=== PATIENT | female | born 1970 | race Caucasian/White ===

== ENCOUNTER 2022-05-26 19:22 | Emergency (ER) | payer MEDICAID, SELFPAY ==
[2022-05-26 19:53] VITALS: BP 172/82; PULSE 79; RESP 16; TEMP 36.6; O2SAT 100; BMI 25.8
--- NOTE | 2022-05-26 19:57 | CRLHL7_ITS ---
For Patients: As a result of the Cures Act, medical imaging exams and procedure reports are released immediately into your electronic medical record. You may view this report before your referring provider. If you have questions, please contact your health care provider. INDICATION: Foreign body. TECHNIQUE: Three views of the right 4th finger. FINDINGS: No radiopaque foreign body identified in the 4th finger. No subcutaneous gas. No fracture. Normal exam. Dictated by Ahmet Garcia MD @ 05/26/2022 8:44:15 PM (Electronically Signed)
--- NOTE | 2022-05-26 19:58 | ED_ITS ---
HPI - Extremity Injury (Upper) General Time Seen by Provider: 19:58 Date Seen: 05/26/22 Chief Complaint: Extremity Pain/Injury, Upper Stated Complaint: Sliver Rt Ring Finger Time Seen by Provider: 05/26/22 19:57 Source: patient and RN notes reviewed Mode of arrival: ambulatory Limitations: no limitations History of Present Illness HPI narrative: Patient was cleaning would drawer when she believe she got a splinter that went in 1 side of the finger and out. She can see wounds along the dorsal PIP joint and then another open wound along the lateral phalanx. She believes are still splinter in there. She is absolutely sure her tetanus is up-to-date. Her finger is painful and hurts to move it. She has been having it on ice, feels numb from that standpoint but noted no numbness immediately after the injury. She states with a very strong flash light at home she could see the splinter still in her finger. MD complaint: injury to: right and finger Related Data Home Medications Medication Instructions Recorded Confirmed No Known Home Medications 05/26/22 05/26/22 Allergies Allergy/AdvReac Type Severity Reaction Status Date / Time aspirin Allergy throat and Verified 05/26/22 20:01 tongue swelling Review of Systems Narrative: As per HPI PFSH PFSH Social History Smoking Status: Current every day smoker How often do you have a drink containing alcohol: monthly or less AUDIT-C Alcohol total score: 1 Non-prescribed substance use: denies use Exam Const: Vital Signs, click to edit/add: Vital Signs - 24 hr 05/26/22 19:53 Temperature 97.8 F Pulse Rate [Right Pulse Oximeter] 79 Respiratory Rate 16 Blood Pressure [Le ft Forearm] 172/82 H Pulse Oximetry 100 Oxygen Delivery Me thod Room Air Patient is resting her finger on an ice pack, the digit is obviously cold from that. Seems to have normal distal sensation. Small possible entrance wound or exit wound along the proximal dorsal PIP joint, no active bleeding at this time. Laterally along the finger there is another small linear skin abnormality, no active bleeding. I cannot feel any abnormality or see any protruding wood splinter. Any touching of this area is extremely painful for her, she does not want me to manipulate or touch the finger. Reviewed that we will see if I can see anything on x-ray. If I cannot see anything on the x-ray, may try to number up with a digital block, see if I can explore at all. If this is not readily evident, may need Orthopedics to actually investigate in the OR which she understands would not be happening tonight. Documenting provider has reviewed patient's vital signs: yes Common normals: no apparent distress, average body habitus, oriented x3, no limitations, healthy appearing and alert Neuro: Common normals: oriented x3 Sensorium/orientation: alert Course Reevaluation(s) Reevaluation #1: Attempted procedure of removal of foreign body. Lidocaine was given as below. Patient was let set for while to get complete anesthesia of the involved finger. After the finger was cleaned, was able to see that the entrance wound actually appeared to be on the palmar surface of the finger along the PIP joint. It was just dried blood on the dorsal surface. The lateral linear lesion that looks like maybe small cut was actually just blood. There is a small pinpoint area where it looked like there might have been a little exit. I was able to blot what felt like to be a retained wood piece or foreign body in her finger. I did attempt a small scalp full incision laterally but this did not give me any better access. There was no significant bleeding at the end, bleeding was controlled with just a bit of pressure. I did try to probe the small entrance wound along the palm of this finger but did not want to open it further. At this time, I feel patient is best suited having Orthopedics remove this foreign body in a controlled environment like the OR. I have subsequently paged them and we are currently waiting a call back. Bandage and dressing was applied, will have staff clean this up and put a bulky dressing on for the evening. Time: 21:14 Reevaluation #2: On review systems, patient has no concerning cardiopulmonary change. It sounds as if she has maybe had some local anesthetic for some type of sister lesion that was drained in the ER but no general anesthesia no surgeries ever in in OR. She states she has no chronic health issues. She is not aware of any family history of any anesthesia issues. She does use chronic tobacco in the form of cigarettes, no alcohol. Sclera clear extraocular muscles intact normal symmetrical facial function. Lungs are clear good air entry, CV regular rate and rhythm no murmur normal S1 and S2. Time: 21:38 Consultations Consultation #1: Dunia the orthopedic PA on-call and I discussed the case. She is going to touch base with the orthopedist and get back to me as far as their plans. They will plan on doing this on Saturday, patient will be contacted about the time of this on Saturday tomorrow. distribution engineering technologist will clean the finger, bandage and put a long finger aluminum form splint on. Plan will be to do this under local. I certainly feel based on my a evaluation and history that she certainly would be clear for local anesthesia and some IV sedation if needed. Time: 21:22 Vital Signs Vital signs: Initial Vital Signs Temperature 97.8 F 05/26/22 19:53 Temperature Source Oral 05/26/22 19:53 Pulse Rate 79 05/26/22 19:53 Respiratory Rate 16 05/26/22 19:53 Blood Pressure 172/82 H 05/26/22 19:53 Blood Pressure Mean 112 05/26/22 19:53 Blood Pressure Position Sitting 05/26/22 19:53 Pulse Oximetry 100 05/26/22 19:53 Oxygen Delivery Method 05/26/22 19:53 Vital Signs Temperature 97.8 F 05/26/22 19:53 Pulse Rate 79 05/26/22 19:53 Respiratory Rate 16 05/26/22 19:53 Blood Pressure 172/82 H 05/26/22 19:53 Pulse Oximetry 100 05/26/22 19:53 Oxygen Delivery Method 05/26/22 19:53 Temperature 97.8 F 05/26/22 19:53 Pulse Rate 79 05/26/22 19:53 Respiratory Rate 16 05/26/22 19:53 Blood Pressure 172/82 H 05/26/22 19:53 Pulse Oximetry 100 05/26/22 19:53 Oxygen Delivery Method 05/26/22 19:53 MDM - Extremity Injury (Upper) Imaging Data X-ray right 4th finger: Attestation: I have reviewed the pertinent imaging results. My impression: No foreign body visualized on my preliminary read. Radiologist's impression: Patient: EMIGDIO FORD Facility:?[facility] Patient ID:?[id number] Site Patient ID:?[id number]. Site :?[id number] Study:?XRay Extremity Right 4th finger-05/26/2022 8:37:30 PM Ordering Physician:?Keith Susana Final Report: INDICATION: Foreign body. TECHNIQUE: Three views of the right 4th finger. FINDINGS: No radiopaque foreign body identified in the 4th finger. No subcutaneous gas. No fracture. Normal exam. Dictated by Ahmet Garcia MD @ 05/26/2022 8:44:15 PM (Electronic Signature) Critical Care Time Critical Care Time Critical Care Time: No Discharge Plan Discharge Clinical Impression: Foreign body of finger of right hand Patient Disposition: Home, Self-Care Condition: Stable Additional Instructions: Need to leave bandage on and use splint to help you from bending this finger, this will help keeping more comfortable. Continue icing and elevating to help minimize pain and swelling. Can use Tylenol and ibuprofen if needed for pain control. The hospital should be contacting you at some point tomorrow to tell you a report time and requirements prior to the surgery. The plan is to have this foreign body removed by Orthopedics under local in the operating room on Mo [place] at some point. Prescriptions: No Action No Known Home Medications Follow Up/Referrals: Provider,Not a Local [Primary Care Provider] - Stand Alone Forms: [facility] Info Instructions Procedures Foreign Body Removal Time Out Performed: no Site: right and other (Finger) Method: Patient was given 5 mL 1% lidocaine as a digital block and left to sit Sedation/Analgesia: none
[2022-05-26] MEDS: LIDOCAINE 1% 5 ml (pf) 5 ML VIAL INJECTION (20:34)
--- NOTE | 2022-05-26 21:48 | ED.NURSE ---
Confirmed with Pt best phone number for contact. HS to work with Ortho and Surgery to schedule time for procedure. Pt aware she will be contacted with arrival time. COVID swab obtained and sent.
--- NOTE | 2022-05-26 21:49 | ED.NURSE ---
finger cleaned and prepped by ert
[2022-05-26 21:53] VITALS: PULSE 70; RESP 18; O2SAT 98
[2022-05-26 22:24] LABS: SARS PCR* Negative SARS-CoV-2 (Negative)
== END 2022-05-26 21:55 | disposition home or self-care (01) ==
PROVIDERS: Emergency Provider Family Medicine
DX: S60.454A Superficial foreign body of right ring finger, initial encounter (principal); W45.8XXA Other foreign body or object entering through skin, initial encounter
CPT/HCPCS: 10120; 73140; 87635; 99283; 99284

== ENCOUNTER 2022-05-28 06:20 | Day surgery (SDC) | payer MEDICAID, SELFPAY ==
[2022-05-28] VITALS (10 sets, daily range): BP systolic 126–140; BP diastolic 61–76; PULSE 73–93; RESP 16; TEMP 36.3–36.4; O2SAT 96–100; BMI 26.6
[2022-05-28] MEDS: BUPIVACAINE 0.5% 30 ML INJECTION (07:00)
[2022-05-28] MEDS: ETHYL CHLORIDE 1 APPLICATION 1 APPLIC TOPICAL (07:00)
--- NOTE | 2022-05-28 07:02 | SUR.PREOP ---
SAME DAY SURGERY LOCAL INJECTION SITE VERIFICATION WAS PERFORMED BY SURGEON/PA AND PATIENT PRIOR TO LOCAL ANESTHETIC BEING INJECTED TO OPERATIVE SITE.
[2022-05-28] MEDS: BACITRACIN OINTMENT BULK TUBE 1 APPLIC TOPICAL (07:57)
--- NOTE | 2022-05-28 08:05 | P.ORPRC_ITS ---
Procedure Note Date of procedure: 05/28/22 Procedure: PREOPERATIVE DIAGNOSIS: 1. Right ring finger retained foreign body, volar PIP joint region (wood slivers) POSTOPERATIVE DIAGNOSIS: 1. Right ring finger retained foreign body, volar PIP joint region (wood slivers) PROCEDURE: 1. Right ring finger open removal of multiple foreign bodies, volar PIP joint region, complicated (wood slivers x6) SURGEON: El Vicente MD. LEAD ESTHETICIAN: Rboert Yuen PA-C - Of note, an patient clerical assistant was critical for this case to aid in patient positioning, tissue retraction, limb manipulation/positioning, patient safety, & closure. ANESTHESIA: Local anesthetic for digital block (50:50 mixture of 1% lidocaine plain and 0.5% marcaine plain) EBL: IMPLANTS: None TOURNIQUET: Tournicot digital tourniquet for approximately 8 minutes COMPLICATIONS: None evident INDICATIONS: The patient is a pleasant 52-year-old female who reportedly was cleaning a dresser/drawer during a home remodeling project. As she slid her right hand along the would surface a sliver penetrated through the volar aspect ring finger PIP joint region. She saw the entry and exit location. She thought she got a majority of the wood fragment out. Unfortunately, she continued to have pain and swelling and dysfunction. She presented [facility]. no further foreign body could be identified through the current penetrating locations. She was given a splint encouraged follow up for surgical removal on today's date, 05/28/2022. Upon my evaluation, indeed she had a significantly swollen, mildly erythematous, tender right S ring finger PIP joint region. She had difficulty with active range of motion due to the pain as well. Indeed there is a small 1 mm entry wound near the PIP flexor crease ulnarly and an exit wound along the radial border of the middle phalanx. Given the suspicion for foreign body retention, surgery was indicated. DESCRIPTION OF PROCEDURE: Following a thorough discussion of risks, benefits, and alternatives consent was obtained and the operative extremity/digit was marked. The patient was brought to the operating room and placed supine on the operating table. No antibiotics were administered as this was planned to be a local case only. Proper time-out was performed identifying proper patient, site, and procedure. The operative extremity was prepped and draped in the appropriate sterile fashion using ChloraPrep. The limb was exsanguinated and the tourniquet inflated. A Jovan incision was made on the volar aspect centered at the PIP joint. Diagonally went across both the proximal phalanx and middle phalanx from ulnar in towards radial. We elevated this flap that was full-thickness down to the flexor tendon sheath. Upon opening the flap, we were able to protect the neurovascular structures/digital artery and nerves. We identified a wood fragment that measures approximately 3 mm x 8 mm. However, further inspection showed 5 other pieces (total of 6 wood fragments) that were that size or slightly smaller for this complicated foreign body removal as those fragments were imbedded within soft tissues and not visible on fluoroscopy. After palpating both digitally as well as with a [place] elevator and visualizing the tract of the entry and exit wounds, no further wood fragments were identified. Its a thorough irrigation normal saline was performed. Hemostasis achieved after releasing the digital tourniquet. Closure performed with 4-0 nylon in interrupted fashion. Dressings were applied, patient was woken from anesthesia and transferred to recovery room stable condition. PLAN: 1. Encourage elevation of the operative extremity. 2. Range of motion of the operative extremity/digits as tolerated. 3. Ibuprofen, acetaminophen and/or Percocet as needed for pain. 4. Follow up with PA visit in 12-16 days for wound check and suture removal.
--- NOTE | 2022-05-30 08:21 | PM.ORCN ---
History of Present Illness HPI Date Seen: 05/28/22 Chief complaint: surgery Narrative: Kvng is a pleasant 52-year-old female. She reports that she was doing a home construction project and got a splinter in her right ring finger. She was cleaning a wood drawer when she believe she got a splinter that went in the volar radial aspect of her ring finger and exited out the volar ulnar aspect of the ring finger near PIP joint flexion crease. At that time, she reports that it was wood. She got a large fragment out, but acknowledge that some of it must have still been retained. She continues to have pain, swelling, and redness. She initially presented to the emergency department on the day of injury (05/26/2022). At that time, no further fragment could be identified. It was felt that she would need surgical exploration to remove any remaining foreign bodies. Thus, it was set up for her to come to the operating room on 05/28/2022. I saw her that morning. Indeed she had an erythematous, warm, painful volar right ring finger. Indeed it was felt that a retained foreign body was present. Surgical debridement and foreign body removal was subsequently indicated. She denies numbness or tingling. No fevers or chills. Review of Systems Narrative: No chest pain or shortness of breath. No blurred vision double vision or headaches. No easy bleeding or bruising or clotting disorders in herself or fingers. Remaining 10 point review of systems otherwise negative except for the HPI as above PFSH PFS Surgical History H/O retained foreign body fully removed (05/28/22) Social History Smoking Status: Current every day smoker How often do you have a drink containing alcohol: monthly or less AUDIT-C Alcohol total score: 1 Non-prescribed substance use: denies use Meds Home Medications and Allergies Allergies Allergy/AdvReac Type Severity Reaction Status Date / Time aspirin Allergy throat and Verified 05/28/22 06:26 tongue swelling Ortho Exam Narrative Exam Narrative: Alert and oriented x3. No acute distress. Nonlabored breathing. Memory intact both remote and recent events regarding today's presenting complaint. Exam of the right ring finger shows mild to moderate erythema around the volar aspect near the PIP joint crease. Swelling is accompanying this same area. Tender palpation. Indeed there appears to be an entry wound in the volar ulnar aspect of the middle phalanx base near the PIP flexion crease and exits along the radial aspect mid axial line of the middle phalangeal region. No visible wood is appreciated today. Distally, digits pink, warm, brisk cap refill. Sensation intact to light touch in the radial and ulnar aspects distally. No active bleeding or drainage visible today. Results Diagnostic results Additional Comments: Three views of the right ring finger from [facility] dated 05/26/2022 ordered by during provider were reviewed by me. This demonstrates no acute fractures, avulsions, or intraosseous pathology. No visible foreign bodies evident. No metallic objects seen. Assessment and Plan Assessment and plan (1) Foreign body of finger of right hand: Status: Acute Plan Indeed there is suspicion for retained foreign body within this right volar ring finger near the middle phalangeal region. It is worthy of surgical exploration and removal accordingly. We discussed the risks, benefits, and alternatives. I believe all questions were answered. Perioperative and postoperative timing and expectations were outlined. Indeed she agrees to proceed with the foreign body removal for this right ring finger on 05/28/2022. Following the procedure, we anticipate soft dressing and sutures will need to be removed. The latter in approximately 12-14 days.
== END 2022-05-28 08:29 | disposition home or self-care (01) ==
PROVIDERS: Visit Provider Orthopaedic Surgery Sports Medicine
PROC: (CPT 20525; principal; 2022-05-28 07:15)
DX: S61.244A Puncture wound with foreign body of right ring finger without damage to nail, initial encounter (principal)
CPT/HCPCS: 20525; J3490